=== PATIENT | female | born 1950 | race Caucasian/White ===

== ENCOUNTER 2023-09-27 00:23 | Emergency (ER) | payer MEDICARE ==
[2023-09-27] MEDS ORDERED: Fluorescein Opthalmic Strip ONE (01:05)
[2023-09-27] MEDS ORDERED: Tetracaine 0.5% PF 4 ML BOT ONE (01:05)
== END 2023-09-27 02:11 | disposition home or self-care (01) ==
LOC: MADERS 00:23
DX: H10.9 Unspecified conjunctivitis (principal); I10 Essential (primary) hypertension
CPT/HCPCS: 99283